=== PATIENT | male | born 1960 | race Hispanic/Latino ===

== ENCOUNTER 2019-11-11 06:30 | Day surgery (SDC) | payer MEDICAID ==
[~2019-11-11] VITALS: Ht 172.7 cm; Wt 67.1 kg
[~2019-11-11 06:30] MED LIST: ATOR-2 PO; CARV6.25 PO; CLOP75TA32 PO; HYDR12.530 PO; LINA5TAB PO; LISI40TA4 PO; LORA10TA7 PO; PREG100C PO; SODIUM CHLORIDE 0.9% 1000ML 1,000 ML IV ONE; VITAMIN D PO
[2019-11-11 07:22] VITALS: BP 159/85
[2019-11-11] MEDS ORDERED: PROPOFOL 10 MG/ML 20ML VIAL IV ONE (07:53)
[2019-11-11] MEDS ORDERED: PREG100C PO (08:05)
[2019-11-11 09:30] VITALS: BP 116/65
[2019-11-11 09:35] VITALS: BP 109/60
[2019-11-11 09:40] VITALS: BP 119/69
[2019-11-11] MEDS ORDERED: DEXTROSE 50%-WATER 25 GM/50 ML VIAL ONE (09:40)
[2019-11-11 09:45] VITALS: BP 119/65
[2019-11-11 09:50] VITALS: BP 124/72
== END 2019-11-11 10:08 | disposition home or self-care (01) ==
LOC: DAH 06:30 → ENDO 06:30
PROVIDERS: ATTEND Internal Medicine Gastroenterology
DX: R15.9 Full incontinence of feces (principal); D12.5 Benign neoplasm of sigmoid colon; K52.9 Noninfective gastroenteritis and colitis, unspecified; K57.30 Diverticulosis of large intestine without perforation or abscess without bleeding; K29.50 Unspecified chronic gastritis without bleeding; K29.80 Duodenitis without bleeding; K22.8 Other specified diseases of esophagus; I10 Essential (primary) hypertension; I25.10 Atherosclerotic heart disease of native coronary artery without angina pectoris; E11.9 Type 2 diabetes mellitus without complications; E78.00 Pure hypercholesterolemia, unspecified; Z86.73 Personal history of transient ischemic attack (TIA), and cerebral infarction without residual deficits; Z91.041 Radiographic dye allergy status; Z88.8 Allergy status to other drugs, medicaments and biological substances; Z90.49 Acquired absence of other specified parts of digestive tract; Z98.890 Other specified postprocedural states; Z79.899 Other long term (current) drug therapy
CPT/HCPCS: 43239; 45380; 45385; 82948 ×3; 93005; A4215; A4221; A4222; A4223; A4606; A4620; A4663; J2704; J7030; J7070